=== PATIENT | male | born 1960 | race Caucasian/White ===

== ENCOUNTER → 2021-04-15 | Outpatient (REF) ==
--- NOTE | 2021-04-16 04:55 | REP ---
INDICATION: DDD PAIN IN LOWER BACK COMPARISON: None. TECHNIQUE: AP, lateral, coned-down views of the lumbar spine. FINDINGS: Three views of the lumbosacral spine demonstrate satisfactory alignment and lordosis without acute fracture / compression injury or subluxation. Moderate multilevel degenerative changes include endplate sclerosis with mild disc space narrowing and mild facet hypertrophy as well as very minimal marginal spurring. IMPRESSION: 1. No acute fracture / compression injury or subluxation. 2. Moderate multilevel degenerative changes. <Electronically signed by Leonardo Churchill > 04/16/21 [id number]
--- NOTE | 2021-04-16 05:17 | REP ---
INDICATION: PAIN COMPARISON: None. TECHNIQUE: AP, lateral, bilateral oblique and sunrise views. FINDINGS: The osseous structures and joint spaces are intact and essentially age-appropriate. There is no evidence for acute fracture or dislocation. No joint effusion is appreciated. Minimal increased sclerosis to the tibial plateau and subtle medial joint space narrowing cannot be excluded. Surrounding soft tissues are unremarkable. No subcutaneous emphysema or radiodense foreign body. IMPRESSION: Essentially age-appropriate examination. As above. <Electronically signed by Leonardo Churchill > 04/16/21 [id number]
== END ==
LOC: M PLAIMG 13:11
PROVIDERS: ATTEND Internal Medicine
DX: Z00.00 Encounter for general adult medical examination without abnormal findings (principal)